=== PATIENT | female | born 1990 | race African-American/Black ===

== ENCOUNTER 2016-12-30 21:44 | Emergency (ER) | payer OTHER ==
--- NOTE | ~2016-12-30 | US134 ---
[facility] A Service of [facility] & [facility] RADIOLOGY TEXT RESULTS PATIENT: ELIN JOSEPH LOCATION: [facility] : [birth year] UNIT #: [id number] AGE: [address]: Nasim Ramirez MD SEX: F ORDER DR: [id number] [facility] [address] [place], [place] [address] [id number] E MR#: [id number] Acc #: [id number] NAME: ELIN JOSEPH : 1990 SEX: F STUDY DATE/TIME: 12/31/2016 0059 UNIT: [facility] ROOM: STUDY DESCRIPTION: US Transvaginal Attending Physician: Pete Ramirez M.D. Ordering Physician: Gabe Watkins M.D. Primary Care Physician: Bee Hinton M.D. MEDICAL IMAGING REPORT This report is preliminary unless electronic signature is present EXAM Pelvic ultrasound, 12/31 at 0059 hours. INDICATION Abdominal cramping for 1 week. Positive test with a beta hCG value of 5284 million international units/mL. FINDINGS Transvaginal imaging is performed of the pelvis in multiple planes. Uterus measures about 6.5 x 4.4 x 5.4 cm. There is thickening of the endometrium with a heterogeneous appearance. Additionally, there appears to be a tiny gestational sac. Mean sac diameter gives an estimated gestational age of 5 weeks 2 days. No yolk sac or pole is identified. This may be due to very early . There is free fluid in the pelvis. Both ovaries show perfusion by Doppler. There are bilateral ovarian follicles. Largest on the right is 1.4 cm. The largest on the left is about 1.5 cm. IMPRESSION 1. There does appear to be a gestational sac within the endometrial canal. It does not yet contain a yolk sac or pole. Estimated age by mean sac diameter is 5 weeks 2 days. Dedicated obstetrical followup recommended. 2. Both ovaries show perfusion by Doppler. There are small bilateral ovarian follicular cyst. 3. Free fluid in the pelvis. Dictated by... Zane Kimball Jr., M.D. THIS IS AN ELECTRONICALLY VERIFIED REPORT [facility] A Service of [facility] & [facility] RADIOLOGY TEXT RESULTS PATIENT: ELIN JOSEPH LOCATION: [facility] : [birth year] UNIT #: [id number] AGE: [address]: Nasim Ramirez MD SEX: F ORDER DR: Zane Kimball Jr., M.D. at 12/31/2016 9:25 PM STANLEY/meryl TD: 12/31/2016 09:31 JOB #: [id number] MEDICAL IMAGING REPORT Page 1 of 1 COPY
[2016-12-30 22:10] LABS: BASOPHIL# 0.1 X10e3 (0-0.3); BASOPHIL% 0.7 % (0-2.5); DIFF IND NO; EOSINOPHIL# 0.2 X10e3 (0-0.7); EOSINOPHIL% 3.3 % (0.0-7.0); HEMATOCRIT 37.5 % (35.0-45.0); HEMOGLOBIN 12.5 gm/dL (12.0-16.0); LYMPHOCYTE# 2.7 X10e3 (1.0-3.5); LYMPHOCYTE% 35.9 % (17.0-45.0); MEAN CELL VOLUME 93.1 FL (83-96); MEAN CORPUSCULAR HEMOGLOBIN 31.2 PG (28-34); MEAN CORPUSCULAR HGB CONC 33.5 g/dL (30-36); MEAN PLATELET VOLUME 8.1 FL (6.5-11.5); MONOCYTE# 0.4 X10e3 (0-1.0); MONOCYTE% 5.7 % (3.0-12.0); NEUTROPHIL% 54.4 % (40-75); PLATELET COUNT 294 X10e3 (140-420); RED BLOOD COUNT 4.03 X10e (3.90-5.30); RED CELL DISTRIBUTION WIDTH 13.4 % (11.0-15.5); WHITE BLOOD COUNT 7.4 X10e3 (4.0-10.5)
[2016-12-30 22:26] LABS: URINE SOURCE CLEAN CATCH
[2016-12-30 22:30] LABS: URINE APPEARANCE CLEAR; URINE BILIRUBIN NEG (NEG); URINE BLOOD NEG (NEG); URINE COLOR YELLOW; URINE GLUCOSE NEG (NEG); URINE KETONE TRACE (NEG); URINE LEUKOCYTE ESTERASE NEG (NEG); URINE NITRATE NEG (NEG); URINE PH 6.5 (5-8); URINE PROTEIN NEG (NEG); URINE SPECIFIC GRAVITY 1.032 (1.003-1.035)
[2016-12-30 22:42] LABS: CULTURE INDICATED? NO
[2016-12-30 22:43] LABS: BUN/CREATININE RATIO 15.55; CALCIUM SERUM 9.4 mg/dL (8.4-10.2); CREATININE SERUM 0.9 mg/dL (0.6-1.4); GLOM FILT RATE Estimated 103.1 mL/min (>60); POTASSIUM 4.2 mmol/L (3.5-5.1)
== END 2016-12-31 02:56 | disposition home or self-care (01) ==
LOC: CED 21:44
PROVIDERS: Emergency Medicine
DX: O99.89 Other specified diseases and conditions complicating pregnancy, childbirth and the puerperium (principal); O99.331 Smoking (tobacco) complicating pregnancy, first trimester; R10.2 Pelvic and perineal pain; F17.210 Nicotine dependence, cigarettes, uncomplicated; Z3A.01 Less than 8 weeks gestation of pregnancy; Z98.890 Other specified postprocedural states
CPT/HCPCS: 36415; 76830; 80048; 81003; 84702; 84703; 85025; 99284

== ENCOUNTER 2017-03-26 12:42 | Emergency (ER) | payer OTHER ==
--- NOTE | ~2017-03-26 | US61 ---
[facility] A Service of [facility] RADIOLOGY TEXT RESULTS PATIENT: ELIN JOSEPH LOCATION: [facility] : [birth year] UNIT #: [id number] AGE: [address]: Makeda Guerrero SEX: F ORDER DR: [id number] [place] [id number] [facility] [place], [place] [address] [id number] E MR#: [id number] Acc #: [id number] NAME: EILN JOSEPH : 1990 SEX: F STUDY DATE/TIME: 03/26/2017 14:09 UNIT: [facility] ROOM: STUDY DESCRIPTION: US /Mat <14Wk / Attending Physician: Makeda Guerrero P.A.-C. Ordering Physician: Makeda Guerrero P.A.-C. MEDICAL IMAGING REPORT This report is preliminary unless electronic signature is present EXAM Early ultrasound HISTORY Intermittent abdomen pain for 2 weeks. Patient is . No bleeding. FINDINGS Transabdominal imaging shows a single intrauterine fetus. Placenta is posterior and amniotic fluid volume is normal. There is no evidence of subchorionic bleeding. Heart rate 158 beats per minutes. Femur length 2.29 cm. Humerus length is 1.88 cm. Head circumference is 14.1 cm and biparietal diameter is 4 cm. No gross abnormalities of the brain visible. No gross abnormalities of the spine are visible. IMPRESSION 1. Single intrauterine . Limited survey does not show any abnormalities. There is no evidence of bleeding around the placenta. The estimated gestational age is approximately 15.5 weeks. Dictated by... Damir Kimball M.D. THIS IS AN ELECTRONICALLY VERIFIED REPORT Damir Kimball M.D. at 03/26/2017 5:27 PM DARREN/evangelist TD: 03/26/2017 16:19 JOB #: [id number] MEDICAL IMAGING REPORT [facility] A Service of [facility] RADIOLOGY TEXT RESULTS PATIENT: ELIN JOSEPH [facility]: [id number] : [birth year] UNIT #: [id number] AGE: [address]: Makeda Guerrero SEX: F ORDER DR: Page 1 of 1 COPY
[2017-03-26 13:51] LABS: URINE SOURCE CLEAN CATCH
[2017-03-26 14:01] LABS: URINE APPEARANCE CLOUDY; URINE BILIRUBIN NEG (NEG); URINE BLOOD NEG (NEG); URINE COLOR YELLOW; URINE GLUCOSE NEG (NEG); URINE KETONE NEG (NEG); URINE LEUKOCYTE ESTERASE 1+ (NEG); URINE NITRATE NEG (NEG); URINE PROTEIN NEG (NEG); URINE SPECIFIC GRAVITY 1.027 (1.003-1.035)
[2017-03-26 14:05] LABS: CULTURE INDICATED? YES; URBCS1 AUWI 0-2 /[HPF] (0-2); URINE BACTERIA AUWI 2+ (NEGATIVE); URINE SQUAMOUS EPITHELIAL CELL MANY /[HPF]
[2017-03-28 01:52] LABS: CHLAMYDIA TRACH Not Detected (Not Detected); N GONOR Not Detected (Not Detected)
== END 2017-03-26 15:50 | disposition home or self-care (01) ==
LOC: CFTX 12:42 → CED 12:42 → CFTX 13:30
PROVIDERS: Physician Assistant
DX: O23.592 Infection of other part of genital tract in pregnancy, second trimester (principal); N76.0 Acute vaginitis; F17.200 Nicotine dependence, unspecified, uncomplicated
CPT/HCPCS: 76801; 81003; 87086; 87491; 87591; 87808; 87905; 99284